=== PATIENT | male | born 1995 | race Two or more races ===

== ENCOUNTER 2017-01-18 06:35 | Inpatient (IN) | payer OTHER ==
[2017-01-18] VITALS (16 sets, daily range): BP systolic 107–140; BP diastolic 63–93
[~2017-01-18] VITALS: Ht 177.8 cm; Wt 86.2 kg
[2017-01-18] MEDS ORDERED: Activated Charcoal 50gm/240ml Btl ORAL ONE (06:45)
[2017-01-18 07:18] LABS: BASOPHILS % (AUTO) 0.9 % (0.0-2.0); EOSINOPHILS % (AUTO) 0.7 % (0.0-3.0); LYMPHOCYTES % (AUTO) 21.4 % (20.0-45.0); MEAN CORPUSCULAR HEMOGLOBIN 33.3 PG (27.0-31.0); MEAN CORPUSCULAR HGB CONC 36.2 G/DL (32.0-36.0); MEAN CORPUSCULAR VOLUME 92 FL (80-99); MONOCYTES % (AUTO) 9.7 % (1.0-10.0); NEUTROPHILS % (AUTO) 67.3 % (45.0-75.0); PLATELET COUNT 208 K/UL (150-450); RED CELL DISTRIBUTION WIDTH 10.8 % (11.6-14.8); WHITE BLOOD COUNT 10.4 K/UL (4.8-10.8)
[2017-01-18 07:37] LABS: ACETAMINOPHEN 148 ug/mL (10-30); ALANINE AMINOTRANSFERASE 32 U/L (3-41); ALBUMIN/GLOBULIN RATIO 1.7 (1.0-2.7); ALCOHOL < 10 mg/dL; ANION GAP 17 (5-15); ASPARTATE AMINO TRANSFERASE 19 U/L (5-40); CARBON DIOXIDE 25 mEQ/L (20-30); CHLORIDE 99 mEQ/L (98-107); GLOMERULAR FILTRATION RATE > 60 mL/min (>60); HEMOLYSIS 11; POTASSIUM 3.4 mEQ/L (3.4-4.9); SODIUM 141 mEQ/L (135-145); TOTAL PROTEIN 7.6 g/dL (6.6-8.7)
[2017-01-18 07:46] LABS: TROPONIN I < 0.30 ng/mL (<=0.30)
[2017-01-18 07:55] LABS: CKMB 2.2 ng/mL (< 6.7)
[2017-01-18] MEDS ORDERED: ACETYLCYSTEINE IV ONE ×4 (08:00→13:30)
[2017-01-18] MEDS ORDERED: D5W IV ONE ×4 (08:00→13:30)
[2017-01-18] MEDS ORDERED: NKM (09:16)
--- NOTE | 2017-01-18 09:42 | Emergency Room Report ---
History of Present Illness General Chief Complaint: Overdose Source: Patient, EMS Present Illness HPI 21-year-old male presents ED for evaluation. Patient brought in by EMS stating that patient overdosed on multiple medications. Family called 911. Reportedly took multiple pills of Vicodin, Banofen. Unknown how many pills. Unclear of the time frame. Patient is altered upon arrival with slurred speech. Patient admits to some abdominal pain. Patient does have psychiatric history and as per EMS and family this is likely a suicide attempt. No other aggravating relieving factors. No other associated symptoms Allergies: Coded Allergies: No Known Allergies (Unverified , 01/18/17) Patient History Past Medical History: psych hx Past Surgical History: none Pertinent Family History: none Social History: Reports: drug use, Denies: smoking, alcohol use Immunizations: UTD Reviewed Nursing Documentation: PMH: Agreed, PSxH: Agreed Nursing Documentation-PMH History Of Psychiatric Problem: Yes Review of Systems All Other Systems: negative except mentioned in HPI Physical Exam Vital Signs Date Time Temp Pulse Resp B/P (MAP) Pulse Ox O2 Delivery O2 Flow Rate FiO2 01/18/17 06:26 98.1 92 18 134/78 97 Room Air Sp02 EP Interpretation: reviewed, normal General Appearance: no apparent distress, GCS 15, non-toxic, lethargic Head: normocephalic, atraumatic Eyes: bilateral eye normal inspection, bilateral eye PERRL ENT: hearing grossly normal, normal pharynx, no angioedema, normal voice Neck: full range of motion, supple/symm/no masses Respiratory: chest non-tender, lungs clear, normal breath sounds, speaking full sentences Cardiovascular #1: regular rate, rhythm, no edema Cardiovascular #2: 2+ carotid (R), 2+ carotid (L), 2+ radial (R), 2+ radial (L) , 2+ dorsalis pedis (R), 2+ dorsalis pedis (L) Gastrointestinal: normal bowel sounds, soft, non-distended, no guarding, no rebound, tenderness Rectal: deferred Genitourinary: normal inspection, no CVA tenderness Musculoskeletal: back normal, gait/station normal, normal range of motion, non- tender Neurologic: sensory intact, other - lethargic Psychiatric: depressed affect Suicide Risk Assessment: Suicidal Ideation: Yes Had intent to initiate attempt: Yes Pt's plan for suicide attempt: Yes Has means to complete attempt: Yes Reflexes: 3+ bicep (R), 3+ bicep (L), 3+ tricep (R), 3+ tricep (L), 3+ knee (R) , 3+ knee (L) Skin: normal color, no rash, warm/dry, well hydrated Lymphatic: no adenopathy Procedures Critical Care Time Critical Care Time i. I feel this is a highly complex case requiring extensive working including EKG/Rhythm strip, Xray/CT/US, Blood/urine lab work, repeat exams while in ED, and administration of strong opiates/narcotics for pain control, admission to hospital or close patient follow up. Total time: 30 min bedside evaluation and treatment excludes procedures (EKG). Reason for critical care: overdose, SI, tylenol toxicity Possible complications: hypotension, hypertension, OH, shock, arrhythmias, metabolic acidosis, end organ damage, respiratory failure. Interventions: , IV fluids, EKG. Charcoal. NAC Course: Patient brought in for overdose on multiple medications. Unclear timeframe. Tylenol level 148. EKG shows no acute ischemic changes. Mucomyst started. Patient will be admitted to ICU. patient will require psychiatric evaluation Consultations: nursing staff, EMS, family Performed by: Dr Chicas Tolerated well condition = critical j. because of unstable vital signs this patient had a condition that could potentially threaten life or limb. I feel this is a critical patient who required my full attention while patient was considered critical. Total Critical Care Time excluding procedures was greater than 35 minutes Medical Decision Making Diagnostic Impression: Primary Impression: Tylenol toxicity Qualified Codes: T39.1X2A - Poisoning by 4-aminophenol derivatives, intentional self-harm, initial encounter Additional Impressions: Suicide attempt by acetaminophen overdose Qualified Codes: T39.1X2A - Poisoning by 4-aminophenol derivatives, intentional self-harm, initial encounter Drug overdose Qualified Codes: T50.902A - Poisoning by unspecified drugs, medicaments and biological substances, intentional self-harm, initial encounter ER Course Hospital Course 21-year-old male presents to ED with altered mental status. Took multiple medications in suicde attempt Differential diagnoses include: Post ictal, Dilantin toxicity, alcohol toxicity , intracranial injury Clinical course patient placed on stretcher. On night monitor. After initial history and physical ordered labs, IV fluids, EKG, Charcoal Labs reviewed-electrolytes okay, leukocytosis, hemoglobin/hematocrit stable, Tylenol level 148 EKG - sinus tachycardia, no acute ischemic changes interpreted by me Poison control contacted- recommend NAC administration NAC bolus dose started. NAC infusion continued Patient is a danger to himself. Will require psychiatric evaluation case discussed with Dr. La and he agreed to accept the patient to his service for further care and support i. I feel this is a highly complex case requiring extensive working including EKG/Rhythm strip, Xray/CT/US, Blood/urine lab work, repeat exams while in ED, and administration of strong opiates/narcotics for pain control, admission to hospital or close patient follow up. Diagnosis - Tylenol toxicity, suicide attempt by Tylenol overdose Admitted to ICU in critical condition Labs Test 01/18/17 06:50 01/18/17 08:00 White Blood Count 10.4 K/UL (4.8-10.8) Red Blood Count 5.40 M/UL (4.70-6.10) Hemoglobin 18.0 G/DL (14.2-18.0) Hematocrit 49.7 % (42.0-52.0) Mean Corpuscular Volume 92 FL (80-99) Mean Corpuscular Hemoglobin 33.3 PG (27.0-31.0) Mean Corpuscular Hemoglobin Concent 36.2 G/DL (32.0-36.0) Red Cell Distribution Width 10.8 % (11.6-14.8) Platelet Count 208 K/UL (150-450) Mean Platelet Volume 9.0 FL (6.5-10.1) Neutrophils (%) (Auto) 67.3 % (45.0-75.0) Lymphocytes (%) (Auto) 21.4 % (20.0-45.0) Monocytes (%) (Auto) 9.7 % (1.0-10.0) Eosinophils (%) (Auto) 0.7 % (0.0-3.0) Basophils (%) (Auto) 0.9 % (0.0-2.0) Sodium Level 141 mEQ/L (135-145) Potassium Level 3.4 mEQ/L (3.4-4.9) Chloride Level 99 mEQ/L (98-107) Carbon Dioxide Level 25 mEQ/L (20-30) Anion Gap 17 (5-15) Blood Urea Nitrogen 17 mg/dL (7-23) Creatinine 1.0 mg/dL (0.7-1.2) Estimat Glomerular Filtration Rate > 60 mL/min (>60) Glucose Level 192 mg/dL (74-106) Calcium Level 9.0 mg/dL (8.6-10.2) Total Bilirubin 0.5 mg/dL (0.0-1.2) Aspartate Amino Transf (AST/SGOT) 19 U/L (5-40) Alanine Aminotransferase (ALT/SGPT) 32 U/L (3-41) Alkaline Phosphatase 86 U/L (40-129) Total Creatine Kinase 123 U/L (38-174) Creatine Kinase MB 2.2 ng/mL (< 6.7) Creatine Kinase MB Relative Index 1.7 Troponin I < 0.30 ng/mL (<=0.30) Total Protein 7.6 g/dL (6.6-8.7) Albumin 4.8 g/dL (3.5-5.2) Globulin 2.8 g/dL Albumin/Globulin Ratio 1.7 (1.0-2.7) Salicylates Level < 1 mg/dL (10-30) Acetaminophen Level 148 ug/mL (10-30) Serum Alcohol < 10 mg/dL Urine Opiates Screen Positive (NEGATIVE) Urine Barbiturates Screen Negative (NEGATIVE) Phencyclidine (PCP) Screen Negative (NEGATIVE) Urine Amphetamines Screen Negative (NEGATIVE) Urine Benzodiazepines Screen Negative (NEGATIVE) Urine Cocaine Screen Negative (NEGATIVE) Urine Marijuana (THC) Screen Negative (NEGATIVE) EKG Diagnostic Results Rate: tachycardiac Rhythm: NSR ST Segments: no acute changes ASA given to the pt in ED: No Rhythm Strip Diag. Results EP Interpretation: yes Rhythm: NSR, no PVC's, no ectopy Last Vital Signs Date Time Temp Pulse Resp B/P (MAP) Pulse Ox O2 Delivery O2 Flow Rate FiO2 01/18/17 08:30 91 12 140/77 100 Room Air 01/18/17 07:10 97.6 Status: improved Disposition: ADMITTED INPATIENT Condition: Critical Referrals: NON PHYSICIAN (PCP) CELESTE CHICAS M.D. Jan 18, 2017 09:42
[2017-01-18] MEDS ORDERED: Nitroglycerin Subl 0.4mg tab (Bottle Of 25) SL PRN (10:45)
[2017-01-18] MEDS ORDERED: LORazepam Inj 2mg/ml 1ml IV PRN (10:45)
[2017-01-18] MEDS ORDERED: DuoNeb 0.5-3(2.5)mg/3ml neb HHN PRN (10:45)
--- NOTE | 2017-01-18 10:50 | History and Physical ---
History of Present Illness General Date patient seen: Jan 18, 2017 Reason for Hospitalization: Overdose Present Illness HPI 21-year-old male without any PMHx presented to ED for evaluation with CC of overdosed on multiple medications. Family called 911. Reportedly took multiple pills of Vicodin, Banofen. Unknown how many pills. Unclear of the time frame. Patient is altered upon arrival with slurred speech. Patient admits to some abdominal pain. No other associated symptoms. Poison control was contracted by ER physician and he was started on Mucomyst. Allergies: Coded Allergies: No Known Allergies (Unverified , 01/18/17) Medication History Scheduled No Known Medications* (NKM - No Known Medications*), 0 ., (Reported) Patient History Healthcare decision maker Resuscitation status Advanced Directive on File Past Medical/Surgical History Past Medical/Surgical History: (1) Psychiatric disorder Review of Systems Constitutional: Reports: no symptoms Skin: Reports: no symptoms Psychiatric: Reports: no symptoms Hematologic/Lymphatic: Reports: no symptoms Physical Exam General Appearance: WD/WN Lines, tubes and drains: peripheral, central line HEENT: normocephalic, atraumatic Neck: non-tender, normal alignment Respiratory/Chest: chest wall non-tender, lungs clear Breasts: no masses Cardiovascular/Chest: normal peripheral pulses Abdomen: normal bowel sounds, non tender Extremities: normal range of motion, non-tender Skin Exam: warm/dry 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 Last 24 Hour Vital Signs Date Time Temp Pulse Resp B/P (MAP) Pulse Ox O2 Delivery O2 Flow Rate FiO2 01/18/17 10:30 98.1 81 18 131/75 98 Room Air 01/18/17 10:20 81 01/18/17 09:55 94 23 143/53 100 Room Air 01/18/17 08:30 91 12 140/77 100 Room Air 01/18/17 07:10 97.6 84 12 136/69 98 Room Air 01/18/17 07:10 84 12 Room Air 01/18/17 06:35 92 18 Room Air 01/18/17 06:26 98.1 92 18 134/78 97 Room Air Intake and Output 01/18/17 01/19/17 19:00 07:00 Intake Total 1250 ml Output Total 1000 ml Balance 250 ml Intake Oral 0 ml IV Total 1250 ml Output Emesis 1000 ml # Voids 1 Laboratory Tests Test 01/18/17 06:50 01/18/17 08:00 White Blood Count 10.4 K/UL (4.8-10.8) Red Blood Count 5.40 M/UL (4.70-6.10) Hemoglobin 18.0 G/DL (14.2-18.0) Hematocrit 49.7 % (42.0-52.0) Mean Corpuscular Volume 92 FL (80-99) Mean Corpuscular Hemoglobin 33.3 PG (27.0-31.0) H Mean Corpuscular Hemoglobin Concent 36.2 G/DL (32.0-36.0) H Red Cell Distribution Width 10.8 % (11.6-14.8) L Platelet Count 208 K/UL (150-450) Mean Platelet Volume 9.0 FL (6.5-10.1) Neutrophils (%) (Auto) 67.3 % (45.0-75.0) Lymphocytes (%) (Auto) 21.4 % (20.0-45.0) Monocytes (%) (Auto) 9.7 % (1.0-10.0) Eosinophils (%) (Auto) 0.7 % (0.0-3.0) Basophils (%) (Auto) 0.9 % (0.0-2.0) Sodium Level 141 mEQ/L (135-145) Potassium Level 3.4 mEQ/L (3.4-4.9) Chloride Level 99 mEQ/L (98-107) Carbon Dioxide Level 25 mEQ/L (20-30) Anion Gap 17 (5-15) H Blood Urea Nitrogen 17 mg/dL (7-23) Creatinine 1.0 mg/dL (0.7-1.2) Estimat Glomerular Filtration Rate > 60 mL/min (>60) Glucose Level 192 mg/dL (74-106) H Calcium Level 9.0 mg/dL (8.6-10.2) Total Bilirubin 0.5 mg/dL (0.0-1.2) Aspartate Amino Transf (AST/SGOT) 19 U/L (5-40) Alanine Aminotransferase (ALT/SGPT) 32 U/L (3-41) Alkaline Phosphatase 86 U/L (40-129) Total Creatine Kinase 123 U/L (38-174) Creatine Kinase MB 2.2 ng/mL (< 6.7) Creatine Kinase MB Relative Index 1.7 Troponin I < 0.30 ng/mL (<=0.30) Total Protein 7.6 g/dL (6.6-8.7) Albumin 4.8 g/dL (3.5-5.2) Globulin 2.8 g/dL Albumin/Globulin Ratio 1.7 (1.0-2.7) Salicylates Level < 1 mg/dL (10-30) L Acetaminophen Level 148 ug/mL (10-30) H Serum Alcohol < 10 mg/dL Urine Opiates Screen Positive (NEGATIVE) H Urine Barbiturates Screen Negative (NEGATIVE) Phencyclidine (PCP) Screen Negative (NEGATIVE) Urine Amphetamines Screen Negative (NEGATIVE) Urine Benzodiazepines Screen Negative (NEGATIVE) Urine Cocaine Screen Negative (NEGATIVE) Urine Marijuana (THC) Screen Negative (NEGATIVE) Height (Feet): 5 Height (Inches): 10.00 Weight (Pounds): 190 Medications Current Medications Medications (Trade) Dose Ordered Sig/Dilip Route PRN Reason Start Time Stop Time Status Last Admin Dose Admin Acetylcysteine 4300 mg/Dextrose 521.5 ml @ 125 mls/hr ONCE ONCE IV 01/18/17 08:00 01/18/17 12:10 01/18/17 09:17 Acetylcysteine 8600 mg/Dextrose 1,043 ml @ 62.5 mls/hr ONCE ONCE IV 01/18/17 08:00 01/19/17 00:41 Assessment/Plan Problem List: (1) Tylenol toxicity ICD Codes: T39.1X1A - Poisoning by 4-Aminophenol derivatives, accidental ( unintentional), initial encounter SNOMED: 30916697 Qualifiers: Qualified Codes: T39.1X2A - Poisoning by 4-aminophenol derivatives, intentional self-harm, initial encounter (2) Drug overdose ICD Codes: T50.901A - Poisoning by unspecified drugs, medicaments and biological substances, accidental (unintentional), initial encounter SNOMED: 03955129 Qualifiers: Qualified Codes: T50.902A - Poisoning by unspecified drugs, medicaments and biological substances, intentional self-harm, initial encounter (3) Psychiatric disorder ICD Codes: F99 - Mental disorder, not otherwise specified SNOMED: 85631431, 256913781 Assessment/Plan Mucomyst IV check LFT psych and GI evaluation dvt prophylaxis ICU care. NANI LAGUNAS Jan 18, 2017 10:50
[2017-01-18] MEDS ORDERED: DiphenhydrAMINE 50mg/ml Inj IVP PRN (12:00)
[2017-01-18] MEDS: Solu-MEDROL 125mg Inj IVP SCH ×3 (12:16→23:42)
[2017-01-18] MEDS: D5 1/2NS 1,000 ML IV SCH ×2 (12:28→23:42)
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
[2017-01-18] MEDS: Famotidine 20 MG/ 2ML VIAL IVP SCH (21:14)
[2017-01-18] MEDS: Heparin 5000 units/ml inj SUBQ SCH (21:17)
[2017-01-18 22:08] LABS: ALANINE AMINOTRANSFERASE 31 U/L (3-41); ALBUMIN/GLOBULIN RATIO 1.9 (1.0-2.7); ANION GAP 15 (5-15); ASPARTATE AMINO TRANSFERASE 16 U/L (5-40); CALCIUM 9.7 mg/dL (8.6-10.2); CARBON DIOXIDE 24 mEQ/L (20-30); CHLORIDE 101 mEQ/L (98-107); CREATININE 0.9 mg/dL (0.7-1.2); GLOMERULAR FILTRATION RATE > 60 mL/min (>60); HEMOLYSIS 17; POTASSIUM 4.1 mEQ/L (3.4-4.9); SODIUM 140 mEQ/L (135-145); TOTAL PROTEIN 7.3 g/dL (6.6-8.7)
--- NOTE | 2017-01-18 22:25 | Consultation ---
Consult Note Consult Note NEUROLOGY CONSULTATION: Full note dictated #[id number] 21 y/o, RH, HM with a benign PH who OD on Tylenol and Benadryl and Vicodin because he broke up with his GF. On admission his Tylenol level was significantly elevated. He feels better now. ON EXAM: Normal except for decreased DTRs IMPRESSION: Suicide attempt due to break up with GF. Acetaminophen OD. REC: Monitor liver functions. Rx of psychiatric problems as per Dr. Coronado. No further neurologic interventions. Daksha Pool M.D., M.S.P.H. DAKSHA POOL Jan 18, 2017 22:25
[2017-01-19] VITALS (16 sets, daily range): BP systolic 87–140; BP diastolic 46–90
--- NOTE | 2017-01-19 04:02 | Consultation ---
DATE OF CONSULTATION: 01/18/2017 NEUROLOGY CONSULTATION CONSULTING PHYSICIAN: Young Pool M.D. REQUESTING PHYSICIAN: Michele La M.D. HISTORY OF PRESENT ILLNESS: The patient is a 21-year-old right-handed gentleman, who has relatively benign past history. He apparently overdosed on Tylenol, Benadryl, and Vicodin because he broke up with his girlfriend. On being evaluated in the emergency room, his acetaminophen levels were significantly elevated and he had positive toxicology screen for opiates. Since he has been in the hospital, he has been functioning relatively well. At this point in time, he feels better. There is no history of any neurological illness and he is not demonstrating any neurological deficits. PAST MEDICAL HISTORY: Significant for prior suicidal attempt as per the notes from the psychiatrist. PRESENT MEDICATIONS: Include heparin for DVT prophylaxis, Pepcid, acetylcysteine, Solu-Medrol, Benadryl, DuoNeb inhaler p.r.n., nitroglycerin p.r.n., Zofran p.r.n., and Ativan p.r.n. PERSONAL HISTORY: Home, he lives with his ex-girlfriend. 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 Habits, there is no history of tobacco or illicit drug use, but he does consume approximately two alcoholic drinks daily. FAMILY HISTORY: Nothing significant. PHYSICAL EXAMINATION: GENERAL: He is a well-developed, well-nourished, pleasant gentleman, lying in bed, in no acute distress. VITAL SIGNS: Pulse 80 per minute, blood pressure 126/76 mmHg, respirations 20 per minute, and temperature 98.1 degrees Fahrenheit. HEENT: Head normocephalic and atraumatic. EENT examination benign. NECK: No neck rigidity was observed. MENTAL STATUS: He was awake and alert. He was oriented to self and January 2017. He did not know the date and did not know where he was located. He was able to remember presidents Trump and Obama, but could not remember presidents prior to that. Speech, he had no dysarthria. Language, he had no aphasia. CRANIAL NERVE II: The visual saldaña were intact to confrontation testing. CRANIAL NERVES III, IV, AND : The external ocular movements were full and the pupils 3 mm in diameter, equal, round, regular, and reactive to light. CRANIAL NERVE V: He had normal facial sensations and the temporalis, masseters, and pterygoids function normally. CRANIAL NERVE VII: He had normal facial expressions and no facial asymmetry. CRANIAL NERVE VIII: He was able to hear well bilaterally and he had no nystagmus. CRANIAL NERVE IX: The palate moved symmetrically on phonation. CRANIAL NERVE X: He had no hoarseness of voice. CRANIAL NERVE XI: The sternocleidomastoids and trapezii function normally. CRANIAL NERVE XII: The tongue was in the midline without any fasciculations or atrophy. MOTOR SYSTEM: The tone was normal in all four extremities. Examination of muscle mass revealed no focal wasting. Examination of power revealed grade 5/5 power in all muscle groups tested. SENSORY EXAMINATION: He had intact sensations to light touch. COORDINATION: He performed well on [id number]-[id number] testing. Nnxs-db-kapq testing was difficult because he was having some low back pain. REFLEXES: Reflexes are 1+ and bilaterally symmetrical at the biceps, triceps, brachioradialis, and knees; trace positive at both ankles. The plantar responses were flexor bilaterally. STANCE: Deferred. GAIT: Deferred. DIAGNOSTIC IMPRESSION: 1. The patient is a 21-year-old right-handed gentleman, who does have relatively benign past history other than a prior suicidal attempt, who overdosed on Tylenol, Benadryl, and Vicodin because he broke up with his girlfriend and was again suicidal. On admission, his acetaminophen levels were significantly elevated. At this point in time, he feels better. 2. On neurological examination at this time, he does have some mild cognitive dysfunction and globally diminished reflexes, but does not demonstrate any other neurological dysfunction. 3. The patient's history and neurological examination are most compatible with a suicide attempt due to break-up with his girlfriend and elevated acetaminophen levels. RECOMMENDATIONS: 1. Agree with management thus far. 2. Treatment for psychiatric problems as per Dr. Coronado. 3. The patient's liver functions should be monitored closely. 4. No further neurological interventions are recommended. Thank you for entrusting me with the care of this patient. Please do let me know if I can be of any further help. Young Pool M.D. DR: OSWALD JOB#: [id number] CC:
[2017-01-19 04:29] LABS: BASOPHILS % (AUTO) 0.4 % (0.0-2.0); LYMPHOCYTES % (AUTO) 12.9 % (20.0-45.0); MEAN CORPUSCULAR HEMOGLOBIN 31.7 PG (27.0-31.0); MEAN CORPUSCULAR HGB CONC 34.7 G/DL (32.0-36.0); MEAN CORPUSCULAR VOLUME 91 FL (80-99); MEAN PLATELET VOLUME 9.1 FL (6.5-10.1); NEUTROPHILS % (AUTO) 84.7 % (45.0-75.0); PLATELET COUNT 216 K/UL (150-450); RED BLOOD COUNT 5.57 M/UL (4.70-6.10); WHITE BLOOD COUNT 7.5 K/UL (4.8-10.8)
[2017-01-19 04:48] LABS: INR 1.1 (0.9-1.1); PROTHROMBIN TIME 11.6 SEC (9.30-11.50)
[2017-01-19 04:57] LABS: ACETAMINOPHEN < 10 ug/mL (10-30); CHOLESTEROL 143 mg/dL (< 200); CHOLESTEROL/HDL RATIO 3.3 (3.3-4.4); HEMOLYSIS 8; LDL CHOLESTEROL (CALC.) 87 mg/dL (60-99)
[2017-01-19 04:58] LABS: BILIRUBIN,DIRECT 0.1 mg/dL (0.1-0.3); PHOSPHORUS 3.7 mg/dL (2.5-4.8); TOTAL PROTEIN 7.4 g/dL (6.6-8.7)
[2017-01-19] MEDS: Solu-MEDROL 125mg Inj IVP SCH (06:06)
--- NOTE | 2017-01-19 07:22 | Pulmonolgy Critical Care Note ---
Critical Care - Asmt/Plan Assessment/Plan: ASSESSMENT overdose Tylenol toxicity - resolved SA by Tylenol overdose mood disorder adjustment disorder PLAN OF CARE ICU IVF Mucomyst Tylenol level <10 this am (initial high 148) stop Mucomyst LFT stable, monitor psych follows no 5150 yet as per psych, will follow GI eval DVT GI prophylaxis Ativan prn urine tox screen + opiates transfer to [facility] with sitter patient medicably cleared psych re-eval pending for need of inpatient psych hospital ADDENDUM: discussed with dr Coronado over the phone at 1315 PET team declined to come [employer] was notified, patient is not on 5150 patient is medically cleared psych cleared for discharge dc home today case discussed and evaluated by supervising physician Critical Care - Objective Last 24 Hour Vital Signs Date Time Temp Pulse Resp B/P (MAP) Pulse Ox O2 Delivery O2 Flow Rate FiO2 01/19/17 07:17 82 18 Room Air 01/19/17 06:00 68 16 94/54 99 Room Air 01/19/17 05:00 63 18 94/61 100 Room Air 01/19/17 04:00 98.2 64 18 91/56 99 Room Air 01/19/17 04:00 66 01/19/17 03:00 76 16 102/52 99 Room Air 01/19/17 02:00 70 15 87/46 99 Room Air 01/19/17 01:00 74 18 96/51 99 Room Air 01/19/17 00:00 110 01/19/17 00:00 98.3 79 18 91/70 99 Room Air 01/18/17 23:00 102 18 107/64 99 Room Air 01/18/17 22:00 93 20 107/68 99 Room Air 01/18/17 21:00 92 18 138/82 99 Room Air 01/18/17 20:00 98.1 96 18 118/76 99 Room Air 01/18/17 20:00 84 01/18/17 19:30 80 20 Room Air 21 01/18/17 19:00 96 17 126/76 99 Room Air 01/18/17 18:00 99 17 133/80 99 Room Air 01/18/17 17:00 87 18 121/90 99 Room Air 01/18/17 16:00 74 01/18/17 16:00 98.1 87 18 120/63 98 Room Air 01/18/17 15:00 87 18 121/90 99 Room Air 01/18/17 14:00 109 20 135/93 97 Room Air 01/18/17 13:00 94 18 130/80 98 Room Air 01/18/17 12:00 97.9 95 16 123/82 98 Room Air 01/18/17 11:00 88 18 127/84 98 Room Air 01/18/17 10:30 98.1 81 18 131/75 98 Room Air 01/18/17 10:20 81 01/18/17 09:55 94 23 143/53 100 Room Air 01/18/17 08:30 91 12 140/77 100 Room Air Status: awake - A/A/O x 4 Romanian speaking only Condition: improving HEENT: atraumatic, normocephalic Neck: full ROM Lungs: clear Heart: HR/BP stable Abdomen: soft, non-tender, active bowel sounds Extremities: no C/C/E Critical Care - Subjective Interval Events: awake, alert, Tylenol level down to less than 10 LFT stable started on diet, as per GI denies chest pain, SOB, palpitations no abdominal pain, no n/v/ Condition: stable IV Access: peripheral EKG Rhythm: Sinus Rhythm FI02: 21 Sputum Amount: None Fluids: D51/2 NS at 75 Douglas OsborneNakia mancini NP Jan 19, 2017 07:22
[2017-01-19] MEDS: Famotidine 20 MG/ 2ML VIAL IVP SCH (09:22)
[2017-01-19] MEDS: Heparin 5000 units/ml inj SUBQ SCH (09:23)
[2017-01-19] MEDS ORDERED: D5 1/2NS 1,000 ML IV SCH (10:00)
[2017-01-19] MEDS ORDERED: D5 1/2NS 1000ml IV ONE ×2 (15:39)
--- NOTE | 2017-01-19 21:45 | Consultation ---
DATE OF CONSULTATION: 01/19/2017 CHIEF COMPLAINT: Tylenol overdose. HISTORY OF PRESENT ILLNESS: This is a 21-year-old male with past medical history of psychiatric problem, broke up with his girlfriend, had overdosed on Tylenol, Vicodin, and Benadryl. When he was in the ER, he was altered. His Tylenol level was elevated. Since then, the patient is admitted to ICU on Mucomyst and then GI consultation requested for evaluation. PAST MEDICAL HISTORY: Psychiatric problem. MEDICATIONS: Please see medication reconciliation list. ALLERGIES: No known allergies. SOCIAL HISTORY: The patient denies any tobacco, alcohol, or drug abuse. FAMILY HISTORY: Noncontributory. REVIEW OF SYSTEMS: A 10-point review of systems was performed and pertinent positives in history of present illness. PHYSICAL EXAMINATION: VITAL SIGNS: Temperature 98.2 degrees, pulse 68, respirations 16, and blood pressure 94/64. HEENT: Normocephalic and atraumatic. Sclerae anicteric. NECK: Supple. No evidence of obvious lymphadenopathy. CARDIOVASCULAR: Regular rhythm. Plus S1 and S2. LUNGS: Clear to auscultation bilaterally. ABDOMEN: Positive bowel sounds. Soft and nontender. No rebound. No guarding. No peritoneal sign. EXTREMITIES: No cyanosis. No clubbing. No edema. LABORATORY DATA: White count 7.5, hemoglobin 17, hematocrit 50, and platelet count 216,000. Liver function tests grossly normal. Chem-7 normal except for glucose of 143. INR is 1.1. ASSESSMENT AND PLAN: This is a 21-year-old male with Tylenol overdose, which has improved. Tylenol level this morning is less than 10. There is no abnormal liver function tests. No elevated creatinine. No elevated INR. The patient to be on regular diet. Continue course of Mucomyst. Follow with psych recommendations. Bishop Lyman M.D. DR: WM JOB#: [id number] CC:
--- NOTE | 2017-01-20 09:29 | Discharge Summary ---
Discharge Summary Hospital Course Date of Admission Jan 18, 2017 at 08:18 Date of Discharge Jan 19, 2017 at 15:40 Admitting Diagnosis Tylenol Overdose HPI Chavez Leigh is a 21 year old male who was admitted on Jan 18, 2017 at 08:18 for Overdose On Benadryl And Vicodin Hospital Course dc summary #[id number] Discharge Medications Medication Profile: No Active Prescriptions or Reported Meds Discharge Condition Upon Discharge: stable Discharge Disposition Patient was discharged to Home () Discharge Diagnoses: Douglas (Shirleyjosy)Nakia NP Jan 20, 2017 09:29
--- NOTE | 2017-01-21 05:45 | Discharge Summary 2 SIG ---
DATE OF ADMISSION: 01/18/2017 DATE OF DISCHARGE: 01/19/2017 REASON FOR ADMISSION: 21-year-old male with psychiatric history presented to emergency room for evaluation. The patient was brought by EMS stating that the patient overdosed on multiple medications. Family called 911. The patient reportedly took multiple pills of Vicodin and Benadryl. The patient was altered upon arrival with slurred speech. He admitted to mild abdominal pain. Workup in the emergency room revealed stable vital signs. Tylenol level was elevated - 148. Serum alcohol less than 10. Salicylate level was negative. Urine toxicology screen was positive for opiates. EKG revealed sinus tachycardia, but no acute ischemic changes. WBC- 10.4. Hemoglobin and hematocrit were stable. Electrolytes were stable. LFTs were within normal limits. Poison control center was consulted and recommended to start Mucomyst. Mucomyst started in ED. The patient was admitted for further management and psychiatric evaluation. ADMITTING DIAGNOSES: 1. Tylenol toxicity. 2. Drug overdose (Tylenol and Benadryl). 3. Suicidal attempt. 4. Psychiatric disorder. HOSPITAL COURSE: The patient was admitted to ICU. The patient was started on IV fluids. The patient was continued with Mucomyst. Psychiatrist and neurologist evaluations were requested. LFTs were closely monitored. DVT prophylaxis provided. GI also seen and evaluated the patient. No abnormal liver function tests. No elevated creatinine. No elevated INR. The patient was able to tolerate regular diet. Tylenol level next day was less than 10. GI cleared the patient for discharge. Neurologist had seen and evaluated the patient. Neurologist stated that on his exam the patient had mild cognitive dysfunction but did not demonstrate any other neurological dysfunction. Per neurologist, the patient's history and neurological examination were most compatible with a suicide attempt due to the break-up with his girlfriend and elevated Tylenol level. Psychiatrist seen and evaluated the patient. Psychiatrist diagnosed the patient with mood disorder and adjustment disorder. She stated that the patient was not 5150 . The patient was reluctant to start psychiatric medication. PET team was called by psychiatrist, but declined to come and evaluate. [employer] was notified, but the patient was not on 5150. The patient was medically cleared. Psychiatrist cleared the patient for discharge home as well. The patient needs to follow up with outpatient psychiatrist. Due to the rapid and unexpected improvement in patient's condition, the patient was discharged in one day. FINAL DIAGNOSES: 1. Tylenol toxicity, resolved. 2. Overdose (on Tylenol and Benadryl). 3. Suicidal attempt. 4. Mood disorder. 5. Adjustment disorder. DISCHARGE MEDICATIONS: See medication reconciliation list. DISCHARGE INSTRUCTIONS: The patient was discharged home. Follow up with the primary medical doctor. Follow up with psychiatrist on outpatient basis. Michele La M.D. Nakia MenjivarBrooks Memorial HospitalChristelle NJeovanyPJeovany DR: Jolene JOB#: [id number] CC: IRA
--- NOTE | 2017-01-21 16:52 | Cardiology Report ---
APPROVED REPORT EKG Measurement Heart [id number] Sinus tachycardia Otherwise normal ECG
== END 2017-01-19 15:40 | disposition home or self-care (01) | DRG 812 ==
LOC: EDBD 06:35 → EMR 07:22 → ICU 08:18 → EDBEDREQ 08:44
DX: T39.1X2A Poisoning by 4-Aminophenol derivatives, intentional self-harm, initial encounter (principal); F39 Unspecified mood [affective] disorder; T45.0X2A Poisoning by antiallergic and antiemetic drugs, intentional self-harm, initial encounter; R41.82 Altered mental status, unspecified; F99 Mental disorder, not otherwise specified; F43.20 Adjustment disorder, unspecified
CPT/HCPCS: 36415; 80053; 80061; 80076; 80300; 80329; 82550; 82553; 83615; 84100; 84484; 85025; 85610; 85730; 87081; 93005; 94664